=== PATIENT | female | born 1970 | race Two or more races ===

== ENCOUNTER → 2023-01-03 15:44 | Outpatient (CLI) | payer MEDICARE, BC, SELFPAY ==
[2023-01-03 15:55] LABS: Amphetamine/Metha Screen,Urine Negative ng/ml (<1000); Benzodiazepines Screen,Urine Positive ng/ml (<200)
[2023-01-03 15:56] LABS: Barbiturates Screen,Urine Negative ng/ml (<200)
[2023-01-03 15:57] LABS: Cannabinoid Screen,Urine Negative ng/ml (<50); Methadone Screen,Urine Negative ng/ml (<300)
[2023-01-03 15:58] LABS: Cocaine Screen,Urine Negative ng/ml (<300); Opiate Screen,Urine Negative ng/ml (<300)
[2023-01-03 15:59] LABS: Phencyclidine Screen,Urine Negative ng/ml (<25)
== END ==
PROVIDERS: PCP Registered Nurse Diabetes Educator; Visit Provider Nurse Practitioner Psychiatric/Mental Health
DX: Z79.899 Other long term (current) drug therapy (principal)
CPT/HCPCS: 80305